=== PATIENT | female | born 1965 | race Caucasian/White ===

== ENCOUNTER 2021-09-11 20:54 | Emergency (ER) | payer BC, SELFPAY ==
--- NOTE | ~2021-09-11 | XR_ITS ---
EXAMINATION: XR FOOT, LEFT CLINICAL INFORMATION: Cellulitis COMPARISON: None TECHNIQUE: AP, lateral, and oblique views of the left foot. FINDINGS: No acute osseous abnormality. No evidence to suggest osteomyelitis. Degenerative findings of the 1st MTP joint, possibly a remote, healed fracture of the metatarsal head. Narrowing of the 2nd and 3rd MTP joints. XR/XR foot LT 2V IMPRESSION: No acute osseous abnormality.
[2021-09-11 21:02] VITALS: BP 143/67; PULSE 82; RESP 17; TEMP 36.9; O2SAT 96; BMI 35.7
[2021-09-11 21:13] LABS: MANUAL DIFF FLAG NO
[2021-09-11 21:25] LABS: Basophils Percent Auto 0.5 % (0-2); Eosinophils Absolute Auto 0.3 X10*3/uL (0.0-0.4); Eosinophils Percent Auto 3.6 % (0-4); Hemoglobin 12.7 g/dl (12.0-16.0); Imm Gran Abs Auto 0.05 X10*3/uL (0.00-0.03); Imm Gran Pct Auto 0.6 % (0.0-0.4); Lymphocytes Absolute Auto 2.4 X10*3/uL (1.2-4.9); Lymphocytes Percent Auto 27.3 % (20-40); Mean Corpuscular HGB Conc 32.6 g/dl (31.0-35.0); Mean Corpuscular Hemoglobin 28.4 pg (27.0-33.0); Mean Corpuscular Volume 87.2 fL (80.0-98.0); Mean Platelet Volume 10.4 fL (9.4-12.3); Monocytes Absolute Auto 0.7 X10*3/uL (0.1-1.2); Monocytes Percent Auto 7.5 % (2-11); Neutrophils Absolute Auto 5.4 x10*3/uL (2.0-8.3); Neutrophils Percent Auto 60.5 % (45-73); Platelet Count 259 X10*3/uL (160-400); Red Blood Count 4.47 X10*6/uL (4.20-5.50); Red Cell Distribution Width 12.8 % (11.0-16.0); White Blood Count 8.8 X10*3/uL (4.8-10.8)
[2021-09-11 21:35] LABS: Alanine Aminotransferase 21 U/L (0-31); Albumin Level 4.2 g/dL (3.5-5.0); Alkaline Phosphatase 65 U/L (39-117); Anion Gap 14 (12-20); Aspartate Amino Transferase 17 U/L (5-31); Bilirubin Total 0.7 mg/dL (0.0-1.0); Blood Urea Nitrogen 16 mg/dL (9-16); Calcium 9.5 mg/dL (8.4-10.2); Carbon Dioxide 27 mmol/L (22-29); Chloride 106 mmol/L (96-108); Creatinine Clr Calc Pharmacy 74.2; Estimated Glomerular Filt Rate > 60; Glucose Random 107 mg/dL (60-115); Potassium 4.2 mmol/L (3.3-5.1); Sodium 143 mmol/L (135-145); Total Protein 6.6 g/dL (6.5-8.0)
[2021-09-11 21:43] VITALS: BP 156/82; PULSE 74; RESP 16; TEMP 36.7; O2SAT 98
--- NOTE | 2021-09-11 22:23 | ED.SKABFB ---
HPI - Skin/Abscess/Foreign Bdy General Chief complaint: Skin/Abscess/Foreign Body Stated complaint: left foot cellulitis from yesterday Source: patient Mode of arrival: ambulatory Limitations: no limitations History of Present Illness HPI narrative: 56-year-old female presents for cellulitis to the left 4th toe that has been worsening. She was seen at urgent care for this problem and given Keflex. She has taken several doses however the erythema has spread beyond the marking that was placed while she was at urgent care. She does not describe any significant pain but states to have pressure. Patient denies diabetes and history of MRSA MD complaint: abscess/boil Onset (ago): day(s) Tetanus up to date: yes Location: L foot Severity: moderate Severity scale (1-10): 5 Quality: other (Pressure) Pain Consistency: constant Relieving factors: rest Exacerbating factors: palpation Context: none Associated symptoms: denies other symptoms Treatments prior to arrival: antibiotic Related Data Previous Rx's Medication Instructions Recorded doxycycline monohydrate 100 mg 100 mg PO Q12H 10 Days #20 cap 09/11/21 capsule Allergies Allergy/AdvReac Type Severity Reaction Status Date / Time No Known Allergies Allergy Unverified 02/12/20 15:15 [No Known Allergies*] Review of Systems Review of Systems: Constitutional: No Fever, No Chills ENT/Mouth: No Ear Pain, No Hoarseness, No sore throat Eyes: No Eye Pain, No Swelling, No Redness, No Foreign Body Cardiovascular: No Chest Pain, No SOB Respiratory: No Cough, No Dyspnea Gastrointestinal: No Nausea, No Vomiting, No Diarrhea, No abdominal Pain Genitourinary: No Dysuria, No Hematuria Musculoskeletal: positive left 4th toe pain, No Myalgias, No Joint Swelling Skin: Positive erythema cellulitis with pustule, No Skin lacerations, No rash Neuro: No Weakness, No Numbness, No Paresthesias, No Loss of Consciousness, No Dizziness, No Headache Psych: No Anxiety/Panic, No Depression Heme/Lymph: no easy bruising, no Lymphadenopathy Endocrine: No Polyuria, No Polydipsia Yes all other systems are reviewed and are negative [facility] Past Medical History Attestation statement: The following information was validated with the patient. Source: old records reviewed Medical History Heel fracture Social History Social History Advance Directives: No Physical Exam Vital Signs: Vital Signs: Last Vital Signs Temp 97.9 F 09/11/21 23:55 Pulse 78 09/11/21 23:55 Resp 16 09/11/21 23:55 BP 126/68 09/11/21 23:55 Pulse Ox 97 09/11/21 23:55 BMI result Body Mass Index 35.7 Appearance: Alert. Oriented X3. No acute distress. Eyes: Pupils equal, round and reactive to light. ENT: Pharynx normal. Neck: Normal inspection. Neck supple. CVS: Normal heart rate and rhythm. Pulses normal. Respiratory: No respiratory distress. Breath sounds normal. Abdomen: Soft and nontender. Skin: Cellulitis and erythema with pustule to the left 4th toe to the dorsal aspect of the left foot. Skin warm and dry. Normal skin color. Normal skin turgor. Extremities: Brisk capillary refill in equal pulses to all extremities. Full range of motion. Neuro: No motor deficit. No sensory deficit. Cranial nerves 2-12 intact. Course Course Course Narrative: 56-year-old female presents with worsening cellulitis to her left foot and 4th toe. Had been taking Keflex for approximately 1 day has taken 6 doses. States that the cellulitis has increased in size. Patient does not report fevers, chills, has full range of motion to her extremities. Lab values are within normal limits, no elevated white count. Will add ceftriaxone IV and doxycycline p.o. to her medication regimen. 00:00 no osteomyelitis noted on x-ray. Plan of care is to add 10 days of p.o. doxy to her medication regimen. Patient does understand that if swelling or skin symptoms worsen that she must return for antibiotics IV.Patient verbalized understanding of and agrees to plan of care to discharge home. Verbalized understanding of signs and symptoms indicating need for emergent intervention MDM - Skin/Abscess/Foreign Bdy Differential Diagnosis Differential diagnosis: Likely abscess of skin or subcutaneous tissue and cellulitis Medical Records Attestation: I reviewed the patient's medical records. Lab Data Attestation: I reviewed the patient's lab results. Result diagrams: 09/11/21 21:07 09/11/21 21:07 Labs: Lab Results 09/11/21 09/11/21 Range/Units 21:07 21:07 WBC 8.8 (4.8-10.8) X10*3/uL RBC 4.47 (4.20-5.50) X10*6/uL Hgb 12.7 (12.0-16.0) g/dl Hct 39.0 (37.0-47.0) % MCV 87.2 (80.0-98.0) fL MCH 28.4 (27.0-33.0) pg MCHC 32.6 (31.0-35.0) g/dl RDW 12.8 (11.0-16.0) % Plt Count 259 (160-400) X10*3/uL MPV 10.4 (9.4-12.3) fL Immature Gran % (Auto) 0.6 H (0.0-0.4) % Neut % (Auto) 60.5 (45-73) % Lymph % (Auto) 27.3 (20-40) % Talbot % (Auto) 7.5 (2-11) % Eos % (Auto) 3.6 (0-4) % Baso % (Auto) 0.5 (0-2) % Lymph # (Auto) 2.4 (1.2-4.9) X10*3/uL Talbot # (Auto) 0.7 (0.1-1.2) X10*3/uL Eos # (Auto) 0.3 (0.0-0.4) X10*3/uL Baso # (Auto) 0.0 (0.0-0.2) X10*3/uL Abs Immat Gran (auto) 0.05 H (0.00-0.03) X10*3/uL Absolute Neuts (auto) 5.4 (2.0-8.3) x10*3/uL Absolute Nucleated RBC 0.000 (0.0-0.012) X10*3/uL Nucleated RBC % (auto) 0.0 (0.0-0.2) /100WBC Sodium 143 (135-145) mmol/L Potassium 4.2 (3.3-5.1) mmol/L Chloride 106 (96-108) mmol/L Carbon Dioxide 27 (22-29) mmol/L Anion Gap 14 (12-20) BUN 16 (9-16) mg/dL Creatinine 0.92 (0.5-1.4) mg/dL Estim Creat Clear Calc 74.2 Estimated GFR > 60 Random Glucose 107 (60-115) mg/dL Calcium 9.5 (8.4-10.2) mg/dL Total Bilirubin 0.7 (0.0-1.0) mg/dL AST 17 (5-31) U/L ALT 21 (0-31) U/L Alkaline Phosphatase 65 (39-117) U/L Total Protein 6.6 (6.5-8.0) g/dL Albumin 4.2 (3.5-5.0) g/dL Imaging Data Foot x-ray: Attestation: I personally reviewed and interpreted this imaging study as follows: Radiologist's impression: EXAMINATION: XR FOOT, LEFT CLINICAL INFORMATION: Cellulitis? COMPARISON: None? TECHNIQUE: AP, lateral, and oblique views of the left foot. FINDINGS: No acute osseous abnormality. No evidence to suggest osteomyelitis. Degenerative findings of the 1st MTP joint, possibly a remote, healed fracture of the metatarsal head. Narrowing of the 2nd and 3rd MTP joints.? XR/XR foot LT 2V IMPRESSION: No acute osseous abnormality. Discharge Plan Discharge Clinical Impression: Cellulitis Patient Disposition: Home, Self-Care Instructions: Cellulitis (ED) Additional Instructions: You were evaluated for worsening cellulitis. I am going to add doxycycline 100 mg twice a day for the next 10 days. Continue to take your Keflex as directed. Your next dose of Keflex is due at 11:00. Use Motrin and Tylenol as needed for pain management. Rest and elevate the foot as needed to help reduce pain and swelling Thank you for choosing this emergency department for evaluation. Please follow-up with primary care physician as needed. Return to the emergency department for any new, concerning, or worsening symptoms. Prescriptions: New doxycycline monohydrate 100 mg capsule 100 mg PO Q12H 10 Days Qty: 20 0RF Interventions: ED Discharge Assessment Last Done: 09/12/21 00:07 Discharge Date/Time: 09/12/21 00:13
--- NOTE | 2021-09-11 22:33 | PC.NURSE ---
XRay at bedside.
[2021-09-11] MEDS: cefTRIAXone sodium 1 GM in 0.9 % Sodium Chloride 50 ML IV (22:44)
--- NOTE | 2021-09-11 22:50 | PC.NURSE ---
IV established, pt medicated per JUL. Pt provided with warm blankets per request.
[2021-09-11 22:58] VITALS: BP 119/68; PULSE 73; RESP 16; O2SAT 97
[2021-09-11 23:55] VITALS: BP 126/68; PULSE 78; RESP 16; TEMP 36.6; O2SAT 97
== END 2021-09-12 00:13 | disposition home or self-care (01) ==
PROVIDERS: Emergency Provider Student in an Organized Health Care Education/Training Program
DX: L03.032 Cellulitis of left toe (principal)
CPT/HCPCS: 36415; 73620; 80053; 85025; 96365; 99284; J0696